=== PATIENT | female | born 1965 | race Caucasian/White ===

== ENCOUNTER 2020-01-22 14:59 | Emergency (ER) | payer OTHER, SELFPAY ==
[2020-01-22 15:04] VITALS: BP 144/91; PULSE 85; RESP 18; TEMP 36.4; O2SAT 100
[2020-01-22 15:08] VITALS: BP 144/81; PULSE 81; RESP 15; TEMP 36.4; O2SAT 100
--- NOTE | 2020-01-22 15:34 | ED.GENADULT ---
HPI - General Adult General Chief complaint: Unspecified Stated complaint: right breast pain Time Seen by Provider: 01/22/20 15:01 Source: patient Mode of arrival: ambulatory Limitations: no limitations History of Present Illness HPI narrative: Patient presents with chief complaint of discomfort to lower right breast that is exacerbated with movement and breathing. 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 Patient states she has order for mammogram by her primary care Dr. Loya but she has not obtained it. Patient denies a history of breast cancer. Patient denies any erythema, palpable mass or nipple drainage. Patient reports having COPD, hypercholesterolemia. Patient smokes cigarettes and marijuana. Related Data Home Medications Medication Instructions Recorded Confirmed albuterol sulfate 90 mcg/actuation 1 puff INHALATION Q4H PRN 12/23/19 aerosol inhaler cholecalciferol (vitamin D3) 1,250 50,000 unit PO WEEKLY 12/23/19 mcg (50,000 unit) capsule simvastatin 20 mg tablet 20 mg PO DAILY 12/23/19 tramadol 50 mg tablet 50 mg PO Q6H PRN 12/23/19 Allergies Allergy/AdvReac Type Severity Reaction Status Date / Time No Known Allergies Allergy Unverified 04/11/19 18:46 Review of Systems Review of Systems: Narrative: CONSTITUTIONAL: Denies fever, chills, or sweats. EYES: Denies visual changes, redness, or discharge. ENT: Denies rhinorrhea, congestion, sore throat, or otalgia. CARDIOVASCULAR: Denies chest pain, palpitations, or edema. RESPIRATORY: Denies cough or dyspnea. GASTROINTESTINAL: Denies abdominal pain, nausea, vomiting, or diarrhea. GENITOURINARY: Denies dysuria or hematuria. SKIN: Denies rash or itching. MUSCULOSKELETAL: Reports right chest wall pain denies back pain, joint pain NEUROLOGIC: Denies headache, numbness, dizziness, or weakness. PSYCHIATRIC: Denies anxiety or depression. [facility] Past Medical History Medical History (Updated 01/22/20 @ 15:43 by Joseluis Albert PA-C) Anxiety Hypercholesterolemia Vitamin D deficiency Surgical History Surgical History (Updated 12/23/19 @ 11:01 by Esperanza Hancock) H/O: hysterectomy Family History Family History (Updated 12/23/19 @ 11:00 by Esperanza Hancock) Father Lung cancer Social History Social History (Updated 12/23/19 @ 11:01 by Esperanza Hancock) Smoking status: Current every day smoker Second hand tobacco smoke exposure: Yes Alcohol intake: never Gender identity (if verbalized by the patient): Female Exam Narrative: Exam Narrative: GENERAL: Well-appearing, well-nourished, and in no acute distress. HEAD: Normocephalic, atraumatic. EYES: PERRLA and EOMI. ENT: Nares clear, no rhinorrhea or epistaxis. Mucous membranes moist. Oropharynx without tonsillar hypertrophy exudate or other lesions. Bilateral TMs pearly corado nonbulging NECK: Supple. No adenopathy or masses. No carotid bruits or JVD CHEST: Clear to auscultation. No respiratory distress. No wheezes rales or rhonchi. No palpable chest wall/breast mass. It is tender to palpation and with range of motion of right arm. There is no discharge from the nipple. There is no erythema ecchymosis or dimpling of the skin above. HEART: Regular rate and rhythm. No murmur heard. Normal peripheral pulses. EXTREMITIES: Normal range of motion. No edema. SKIN: Warm, dry, no rash. NEURO: No focal deficits. Alert and oriented x3. PSYCH: Normal mood and affect. Course Vital Signs Vital signs: Vital Signs Temperature 97.5 F L 01/22/20 15:04 Pulse Rate 85 01/22/20 15:04 Respiratory Rate 18 01/22/20 15:04 Blood Pressure 144/91 H 01/22/20 15:04 Pulse Oximetry 100 01/22/20 15:04 Temperature 97.6 F 01/22/20 15:08 Pulse Rate 81 01/22/20 15:08 Respiratory Rate 15 01/22/20 15:08 Blood Pressure 144/81 H 01/22/20 15:08 Pulse Oximetry 100 01/22/20 15:08 Medical Decision Yvette
[2020-01-22] MEDS: KETOROLAC 30 MG/ML VIAL (*BKC) IM (16:05)
== END 2020-01-22 16:20 | disposition home or self-care (01) ==
PROVIDERS: Emergency Provider Family Medicine; PCP Emergency Medicine
DX: R07.89 Other chest pain (principal); E78.00 Pure hypercholesterolemia, unspecified; E55.9 Vitamin D deficiency, unspecified; J44.9 Chronic obstructive pulmonary disease, unspecified; F17.210 Nicotine dependence, cigarettes, uncomplicated
CPT/HCPCS: 96372; 99283; J1885

== ENCOUNTER → 2020-01-29 12:07 | Outpatient (CLI) | payer OTHER, SELFPAY ==
--- NOTE | ~2020-01-29 | XR_ITS ---
EXAMINATION: XR_[id number]_CR EXAM DATE: 01/29/2020 12:43 INDICATION: No known recent injury provided at this time. Pain behind right breast for 2 weeks. TECHNIQUE: Frontal projection of the upper right ribs, frontal projection of the lower right ribs, ob lique projection of the right ribs, frontal chest x-ray(s) for interpretation. Correlation is made to chest x-ray 01/29/2020. FINDINGS: There is right ninth rib fracture laterally which appears to be healed, an old finding. The re are no acute fractures identified. There are no osteoblastic or osteolytic lesions identified. The re is mild right shoulder acromioclavicular joint primary osteoarthritis. There is no soft tissue abn ormality seen. There are cholecystectomy clips. No confluent consolidation, pneumothorax or pleural e ffusion suspected. IMPRESSION: No acute right rib fractures identified. Reviewed, dictated and finalized at location A. 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
--- NOTE | ~2020-01-29 | XR_ITS ---
EXAMINATION: XR chest 2V 01/29/2020 12:43 INDICATION: Chest pain. History of rib fracture. PROCEDURE: 2 view chest COMPARISON: No prior studies for comparison. FINDINGS: The lungs are clear. The cardiomediastinal silhouette is within normal limits. There are no pleural effusions. There is no pneumothorax suspected. IMPRESSION: 1: NO ACUTE CARDIOPULMONARY DISEASE. Reviewed, dictated and finalized at location B. C SUPERVISOR
== END ==
PROVIDERS: PCP Emergency Medicine; Visit Provider Emergency Medicine
DX: N64.4 Mastodynia (principal)
CPT/HCPCS: 71046; 71101

== ENCOUNTER → 2020-06-14 13:44 | Outpatient (CLI) | payer OTHER, SELFPAY ==
--- NOTE | ~2020-06-14 | XR_ITS ---
XR elbow RT min 3V DATE: 06/14/2020 14:40 INDICATION: Right elbow pain TECHNIQUE: 4 views COMPARISON: None FINDINGS: No fracture or dislocation or joint effusion. No periosteal reaction or bone destruction. IMPRESSION: No significant abnormality Reviewed, dictated and finalized at location B. IMPRESSION: No significant abnormality
--- NOTE | ~2020-06-14 | XR_ITS ---
XR hand RT min 3V DATE: 06/14/2020 14:41 INDICATION: Right hand pain TECHNIQUE: 3 views COMPARISON: None FINDINGS: No fracture or dislocation, periosteal reaction or bone destruction. There are mild osteoar thritic changes of the first carpometacarpal, first and second metacarpophalangeal and some of the in terphalangeal joints. No fracture, dislocation, periosteal reaction or bone destruction or erosive change or chondrocalcino sis. IMPRESSION: Mild osteoarthritis Reviewed, dictated and finalized at location B. IMPRESSION: Mild osteoarthritis
--- NOTE | ~2020-06-14 | XR_ITS ---
XR hip LT min 2V DATE: 06/14/2020 14:39 INDICATION: Left hip pain TECHNIQUE: AP, lateral, crosstable lateral views of left hip COMPARISON: None FINDINGS: No fracture or dislocation, avascular necrosis or bone destruction. The left hip joint spac e is narrowed medially with mild spurring.. IMPRESSION: Mild left hip osteoarthritis Reviewed, dictated and finalized at location B.
--- NOTE | ~2020-06-14 | XR_ITS ---
XR hip RT min 2V DATE: 06/14/2020 14:40 INDICATION: Right hip pain TECHNIQUE: AP, lateral, crosstable lateral views of right hip COMPARISON: None FINDINGS: There is medial right hip joint space narrowing and mild spurring consistent with osteoarth ritis. No fracture, dislocation, avascular necrosis or bone destruction. IMPRESSION: Mild right hip osteoarthritis Reviewed, dictated and finalized at location B.
--- NOTE | ~2020-06-14 | XR_ITS ---
XR hand LT min 3V DATE: 06/14/2020 14:40 INDICATION: Left hand pain TECHNIQUE: 3 views COMPARISON: None FINDINGS: There is mild osteoarthritic change at the first carpometacarpal joint. No fracture, dislocation, periosteal reaction or bone destruction is detected. No erosive change or c hondrocalcinosis. IMPRESSION: Mild osteoarthritis Reviewed, dictated and finalized at location B. IMPRESSION: Mild osteoarthritis
--- NOTE | ~2020-06-14 | XR_ITS ---
XR forearm RT 2V DATE: 06/14/2020 14:41 INDICATION: Right forearm pain TECHNIQUE: AP and lateral views COMPARISON: None FINDINGS: No fracture or dislocation, periosteal reaction or bone destruction. Normal alignment at th e elbow and wrist joints. IMPRESSION: No significant abnormality Reviewed, dictated and finalized at location B. IMPRESSION: No significant abnormality
== END ==
PROVIDERS: PCP Emergency Medicine; Visit Provider Emergency Medicine
DX: M25.521 Pain in right elbow (principal); M25.542 Pain in joints of left hand; M25.541 Pain in joints of right hand; M19.042 Primary osteoarthritis, left hand; M19.041 Primary osteoarthritis, right hand; M16.0 Bilateral primary osteoarthritis of hip
CPT/HCPCS: 73080; 73090; 73130; 73502

== ENCOUNTER 2020-10-12 10:34 | Outpatient (CLI) | payer OTHER, SELFPAY ==
[2020-10-12 12:26] LABS: Folic Acid 16.5 ng/mL (2.76->20)
== END 2020-10-12 10:35 | disposition home or self-care (01) ==
PROVIDERS: PCP Emergency Medicine; Visit Provider Emergency Medicine
DX: R71.8 Other abnormality of red blood cells (principal)
CPT/HCPCS: 36415; 82607; 82746

== ENCOUNTER 2021-01-24 11:56 | Outpatient (CLI) | payer OTHER, SELFPAY ==
--- NOTE | ~2021-01-24 | XR_ITS ---
EXAMINATION: XR forearm RT 2V EXAM DATE: 01/24/2021 12:30 INDICATION: Right wrist, elbow pain, no known recent injury. TECHNIQUE: Right forearm frontal and lateral projections obtained and reviewed. Correlation is made t o right elbow examination 3 06/14/2020. FINDINGS: There are no acute right forearm fractures or dislocations identified. There is no subcuta neous gas. The soft tissue is unremarkable. There are no radiopaque foreign bodies. IMPRESSION: 1. Unremarkable XR forearm RT 2V exam. Reviewed, dictated and finalized at location A. 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
--- NOTE | ~2021-01-24 | XR_ITS ---
EXAMINATION: XR hip BI wo pelvis EXAM DATE: 01/24/2021 12:29 INDICATION: Bilateral hip pain, no known recent injury. TECHNIQUE: Each hip imaged independently (separate right and also left hip) 'frog leg' and frontal p rojections for interpretation. Comparison is made to prior examination from 06/14/2020. FINDINGS: No radiographic evidence of hip avascular necrosis. There is mild symmetric bilateral hip primary osteoarthritis. There are no acute fractures or dislocations identified. There is no subcuta neous gas. The soft tissue is unremarkable. There are no radiopaque foreign bodies. There is no s ignificant interval change. IMPRESSION: Mild symmetric bilateral hip osteoarthritis. Reviewed, dictated and finalized at location A. OL TANKER DRIVER
--- NOTE | ~2021-01-24 | XR_ITS ---
EXAMINATION: XR hand RT min 3V EXAM DATE: 01/24/2021 12:29 INDICATION: No known recent injury provided at this time. Pain of the thumbs bilaterally. TECHNIQUE: Right hand frontal, lateral and oblique projections obtained and reviewed. Comparison is m gordon to prior examination from 06/14/2020. FINDINGS: Right metacarpal bones are unremarkable. There is mild 1st carpometacarpal, metacarpophala ngeal, polyarticular interphalangeal primary osteoarthritis. There are no bony erosions identified. There are no acute fractures or dislocations identified. There is no subcutaneous gas. The soft tis kike is unremarkable. There are no radiopaque foreign bodies. IMPRESSION: Mild polyarticular right hand osteoarthritis. Reviewed, dictated and finalized at location A. 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
--- NOTE | ~2021-01-24 | XR_ITS ---
EXAMINATION: XR hand LT min 3V EXAM DATE: 01/24/2021 12:29 INDICATION: No known recent injury provided at this time. Pain of the thumbs bilaterally. TECHNIQUE: Left hand frontal, lateral and oblique projections obtained and reviewed. Comparison is ma de to prior examination from 06/14/2020. FINDINGS: Left metacarpal bones are unremarkable. There is mild primary osteoarthritis at the 1st car pometacarpal, metacarpophalangeal and interphalangeal joints, as well as multiple interphalangeal eliu nts. There are no bony erosions identified. There are no acute fractures or dislocations identified. There is no subcutaneous gas. The soft tissue is unremarkable. There are no radiopaque foreign alicia dies. IMPRESSION: Mild polyarticular left hand osteoarthritis, 1st CMC joint most affected. Reviewed, dictated and finalized at location A. BATTALION CHIEF IMPRESSION: Mild polyarticular left hand osteoarthritis, 1st CMC joint most aff ected.
--- NOTE | ~2021-01-24 | XR_ITS ---
EXAMINATION: XR elbow RT min 3V DATE: 01/24/2021 12:29 INDICATION: Right elbow pain. TECHNIQUE: 4 views of right elbow were obtained. COMPARISON: None. FINDINGS: Bone alignment is normal. No fracture. Joint spaces are well maintained. There is an enthes ophyte at medial humeral epicondyle. There is no elbow joint effusion. IMPRESSION: 1. No specific etiology for the patient's symptoms. Reviewed, dictated and finalized at location A. CH SPECIALIST
== END 2021-01-24 11:57 | disposition home or self-care (01) ==
LOC: ANHIMG 12:03
PROVIDERS: PCP Emergency Medicine; Visit Provider Emergency Medicine
DX: M79.631 Pain in right forearm (principal); M16.0 Bilateral primary osteoarthritis of hip; M18.11 Unilateral primary osteoarthritis of first carpometacarpal joint, right hand; M19.042 Primary osteoarthritis, left hand; M19.041 Primary osteoarthritis, right hand; M25.521 Pain in right elbow
CPT/HCPCS: 73080; 73090; 73130; 73521

== ENCOUNTER 2021-02-11 08:43 | Outpatient (CLI) | payer OTHER, SELFPAY ==
--- NOTE | ~2021-02-11 | MM_ITS ---
EXAMINATION: MM screening [facility] BI w cynthia HISTORY: Screening mammogram TECHNIQUE: Craniocaudal and mediolateral oblique 3-D tomosynthesis images were obtained and synthetic 2-D images were generated. CAD analysis was submitted and interpreted. COMPARISON: 08/02/2016, 06/26/2016 BREAST PARENCHYMAL COMPOSITION: There are scattered areas of fibroglandular density. FINDINGS: There is no evidence of suspicious mass, calcification, or architectural distortion to sugg est malignancy in either breast. There has been no suspicious interval change. IMPRESSION: 1. No mammographic evidence of malignancy. 2. Recommend routine screening mammography in one year. BI-RADS Category 1: Negative Reviewed, dictated and finalized at location A.
== END 2021-02-11 08:44 | disposition home or self-care (01) ==
LOC: ANHIMG 08:45
PROVIDERS: PCP Emergency Medicine; Visit Provider Emergency Medicine
DX: Z12.31 Encounter for screening mammogram for malignant neoplasm of breast (principal)
CPT/HCPCS: 77063; 77067

== ENCOUNTER 2021-02-18 09:40 | Outpatient (CLI) | payer OTHER, SELFPAY ==
--- NOTE | ~2021-02-18 | US_ITS ---
EXAMINATION: US abdomen complete EXAM DATE: 02/18/2021 10:04 INDICATION: Elevated alkaline phosphatase. TECHNIQUE: Multiple grayscale and Doppler images of the complete abdomen were obtained (by a technolo gist who performed the scan) and subsequently reviewed. There is no prior study for comparison. FINDINGS: The abdominal aorta is normal in caliber. Visualized portion IVC is patent. The pancreatic head a nd body are normal in appearance. The pancreatic tail is not visualized. The liver has normal echogenicity and contour. There are no focal liver lesions identified. There is no evidence of intrahepatic biliary duct dilation. Portal venous flow was seen in the hepatopedal , normal direction and has normal Doppler waveform. Common bile duct measures 3 mm, which is normal. The gallbladder fossa is unremarkable. Right kidney: There is normal contour and echogenicity. It measures 11.1 x 3.9 x 4.5 centimeters. There are no focal renal lesions identified. There is no hydronephrosis. Left kidney: There is normal contour and echogenicity. It measures 11.5 x 4.9 x 4.5 centimeters. T here are no focal renal lesions identified. There is no hydronephrosis. The spleen measures 10.2 centimeters and is morphologically normal. IMPRESSION: 1. Unremarkable complete abdominal ultrasound exam. Reviewed, dictated and finalized at location A.
== END 2021-02-18 09:41 | disposition home or self-care (01) ==
LOC: ANHIMG 09:41
PROVIDERS: PCP Emergency Medicine; Visit Provider Emergency Medicine
DX: M25.551 Pain in right hip (principal); M25.552 Pain in left hip; R79.89 Other specified abnormal findings of blood chemistry
CPT/HCPCS: 76700

== ENCOUNTER 2021-08-08 09:59 | Emergency (ER) | payer OTHER, SELFPAY ==
--- NOTE | ~2021-08-08 | XR_ITS ---
EXAMINATION:XR_[id number]_CR DATE: 08/08/2021 10:48 INDICATION: Neck pain TECHNIQUE: AP, lateral, lateral swimmers and odontoid views of the cervical spine are provided. COMPARISON: None FINDINGS: Alignment is normal. The odontoid is intact. No fracture is identified. The vertebral heigh ts are maintained. There is mild loss of intervertebral disc space height at C4-5. There is severe fa cet osteoarthritis at C2-3 and C3-4. Prevertebral soft tissues are normal. IMPRESSION: 1. Mild cervical spondylosis without acute findings. Reviewed, dictated and finalized at location A.
--- NOTE | ~2021-08-08 | CT_ITS ---
EXAMINATION: CT brain wo con DATE: 08/08/2021 10:41 INDICATION: Trauma with posterior head injury and vomiting TECHNIQUE: Computed tomography (CT) of the head was performed without intravenous contrast. Sagittal and coronal reconstructions were performed. The mA was adjusted according to patient size. Iterative reconstruction technique was employed. The dose-length product was 605.33 mGy-cm. COMPARISON: head CT dated 09/13/2014 FINDINGS: No calvarial fracture. No acute intracranial hemorrhage, acute infarction or abnormal extra axial flu id collection. Ventricles are normal and symmetric. No mass/mass effect. The orbits, paranasal sinuse s and mastoid air cells are normal. IMPRESSION: 1. Normal head CT. No fracture or acute intracranial process. Reviewed, dictated and finalized at location A.
[2021-08-08 10:03] VITALS: BP 127/88; PULSE 72; RESP 16; TEMP 36.9; O2SAT 97
[2021-08-08] MEDS: KETOROLAC (*BKC) 60 MG/2 ML VIAL IM (10:31)
--- NOTE | 2021-08-08 11:09 | ED.FALL ---
HPI - Fall General Chief Complaint: Fall Stated Complaint: Fall Head Injury Time Seen by Provider: 08/08/21 10:14 History of Present Illness HPI Narrative: Patient is a 56-year-old female who presents ER after falling last night and striking her head. She had her dog leash wrapped around her leg and the dog ran away causing her to spin in a cachil dehe. She fell backwards and struck her head. No loss consciousness but had immediate emesis. She had some mild headaches since then. No changes in vision or hearing. She is not on blood thinner. She does endorse body aches most prominently in her cervical region. No upper or lower extremity numbness or tingling or weakness. Related Data Home Medications Medication Instructions Recorded Confirmed albuterol sulfate 90 mcg/actuation 1 puff INHALATION Q4H PRN 12/23/19 aerosol inhaler cholecalciferol (vitamin D3) 1,250 50,000 unit PO WEEKLY 12/23/19 mcg (50,000 unit) capsule simvastatin 20 mg tablet 20 mg PO DAILY 12/23/19 tramadol 50 mg tablet 50 mg PO Q6H PRN 12/23/19 Allergies Allergy/AdvReac Type Severity Reaction Status Date / Time No Known Allergies Allergy Unverified 04/11/20 12:30 Review of Systems Review of Systems: All systems reviewed & are unremarkable except as noted in HPI and below Constitutional: Constitutional: Denies chills, Denies fever(s) and Denies weakness Eyes: Eyes: Denies change in vision and Denies photophobia ENT: Denies nasal congestion and Denies sore throat Gastrointestinal: Gastrointestinal: Denies nausea and Reports vomiting Neurologic: Denies confusion, Denies dizziness, Denies syncope, Reports headache(s), Denies focal weakness and Denies numbness [facility] Past Medical History Medical History (Updated 08/08/21 @ 11:13 by Bernardo Rendon MD) Anxiety Hypercholesterolemia Vitamin D deficiency Surgical History Surgical History (System 04/11/20 @ 12:30 by Bernie Lizama) H/O: hysterectomy Family History Family History (System 04/11/20 @ 12:30 by Bernie Lizama) Father Lung cancer Social History Social History (System 04/11/20 @ 12:30 by Bernie Lizama) Smoking status: Current every day smoker Second hand tobacco smoke exposure: Yes Alcohol intake: never Gender identity (if verbalized by the patient): Female Exam Narrative: GENERAL: Well-appearing, well-nourished, and in no acute distress. HEAD: Normocephalic, atraumatic. EYES: PERRL and EOMI. right and left gaze nystagmus. ENT: Mucous membranes moist. CHEST: Clear to auscultation. No respiratory distress. HEART: Regular rate and rhythm. Normal peripheral pulses. ABDOMEN: Soft, nontender, nondistended. Back: Paraspinal muscular tenderness of the cervical and thoracic spine. Mild midline tenderness of the cervical spine. No step-offs. EXTREMITIES: Normal range of motion. No edema. NEURO: Alert and oriented x3. Course Course Emergency Course: Toradol given for pain. Patient informed of results. Discharge home. Vital Signs Vital signs: Vital Signs Temperature 98.4 F 08/08/21 10:03 Pulse Rate 72 08/08/21 10:03 Respiratory Rate 16 08/08/21 10:03 Blood Pressure 127/88 08/08/21 10:03 Pulse Oximetry 97 08/08/21 10:03 Temperature 98.4 F 08/08/21 10:03 Pulse Rate 72 08/08/21 10:03 Respiratory Rate 16 08/08/21 10:03 Blood Pressure 127/88 08/08/21 10:03 Pulse Oximetry 97 08/08/21 10:03 MDM - Fall Imaging Data Radiologist's impression: ITS Impressions Head CT 08/08/21 10:42 IMPRESSION: 1. Normal head CT. No fracture or acute intracranial process. Cervical Spine X-Ray 08/08/21 10:53 IMPRESSION: 1. Mild cervical spondylosis without acute findings. Discharge Plan Discharge Clinical Impression: Concussion, Cervical strain Patient Disposition: Home, Self-Care Condition: Stable Instructions: Cervical Strain (ED), Concussion (ED) Additional
[2021-08-08 11:25] VITALS: BP 127/84; PULSE 66; RESP 16; O2SAT 100
== END 2021-08-08 11:28 | disposition home or self-care (01) ==
PROVIDERS: Emergency Provider Emergency Medicine; PCP Emergency Medicine
DX: S06.0X0A Concussion without loss of consciousness, initial encounter (principal); S16.1XXA Strain of muscle, fascia and tendon at neck level, initial encounter; F41.9 Anxiety disorder, unspecified; E78.00 Pure hypercholesterolemia, unspecified; F17.210 Nicotine dependence, cigarettes, uncomplicated; W01.10XA Fall on same level from slipping, tripping and stumbling with subsequent striking against unspecified object, initial encounter
CPT/HCPCS: 70450; 72040; 96372; 99284; J1885

== ENCOUNTER 2021-12-25 18:08 | Emergency (ER) | payer OTHER, SELFPAY ==
--- NOTE | 2021-12-25 18:21 | ED.ANIMALBIT ---
HPI - Animal Bite General Chief Complaint: Animal Bite Stated Complaint: Cat bite Time Seen by Provider: 12/25/21 18:21 Mode of arrival: ambulatory Limitations: no limitations History of Present Illness HPI narrative: 56-year-old female presents concern for cat bite to her right hand. She reports today she was bit by her cat. Reports the cat is up-to-date on its rabies vaccination. She reports dorsal hand pain, swelling, scabs. She denies fever, body aches, chills, drainage from the area. complaint: animal bite Related Data Home Medications Medication Instructions Recorded Confirmed albuterol sulfate See Rx Instructions .ROUTE .COMPLEX 12/25/21 12/25/21 simvastatin 20 mg PO DAILY 12/25/21 12/25/21 Allergies Allergy/AdvReac Type Severity Reaction Status Date / Time No Known Allergies Allergy Unverified 12/25/21 18:20 Review of Systems Review of Systems: CONSTITUTIONAL: Denies malaise, chills, sweats, or fever. CARDIOVASCULAR: Denies chest pain, palpitations, or edema. RESPIRATORY: Denies cough or dyspnea. SKIN: Cat bite with pain, swelling, redness to the right hand MUSCULOSKELETAL: Denies myalgia. Reports right hand pain NEUROLOGIC: Denies numbness, weakness All systems reviewed & are unremarkable except as noted in HPI and below PMFSH Past Medical History Medical History (Updated 12/25/21 @ 18:27 by Felisa Crews NP) Anxiety Hypercholesterolemia Vitamin D deficiency Surgical History Surgical History (System 04/11/20 @ 12:30 by Bernie Lizama) H/O: hysterectomy Family History Family History (System 04/11/20 @ 12:30 by Bernie Lizama) Father Lung cancer Social History Social History (System 04/11/20 @ 12:30 by Bernie Lizama) Smoking status: Current every day smoker Second hand tobacco smoke exposure: Yes Alcohol intake: never Gender identity (if verbalized by the patient): Female Comments At time of signature, agree with nursing past medical, surgical, social and family history. There is no relevant family history pertinent to the presenting complaint Exam Narrative: GENERAL: Well-appearing, well-nourished, and in no acute distress. HEAD: Normocephalic EYES: PERRLA, conjunctivae clear NECK: Supple. CHEST: Speaks in full sentences. No respiratory distress. HEART: Regular rate and rhythm. Normal and equal peripheral pulses. EXTREMITIES: Right hand and digits of hand have normal strength and sensation. 5/5 strength with digit flexion, extension. No clubbing, cyanosis, or edema noted. Dorsal tenderness and erythema beneath digits 3 and 4. Normal digital cascade with flexion of fingers, median, ulnar and radial nerve intact. Normal sensation of each side of finger. Can perform 'okay' sign, 'cross over finger test of index and middle fingers. No scissoring. Normal thumb opposition. Good capillary refill and radial pulse. Distal capillary refill less than 3 seconds. Patient is right/left hand dominant SKIN: Warn, dry, intact, pink. Scabbed puncture wounds noted to the dorsal hand many digits 3 and 4 without surrounding induration or warmth NEURO: Alert and oriented x3. PSYCH: Normal mood and affect Course Course Emergency Course: Patient is aware of diagnosis, understands and agrees to treatment plan. Anticipatory guidance given. Patient agrees to follow-up as directed and is aware of reasons to seek care at the emergency department. Portions of this record may have been created with voice recognition software Level of Care: Express Care Visit Vital Signs Vital signs: Reviewed. MDM - Animal Bite MDM Narrative Medical decision making narrative: Exam findings show no acute concerns or changes; patient is non-toxic appearing and is in no distress. Patient is appropriate for outpatient treatment and follow-up. Differential Diagnosis Differential diagnosis: Likely cat bite and other (Cellulitis, abscess, tendon injury) Critical Care Time Critical Care Time Cri
[2021-12-25] MEDS: TETANUS,DIPHTHERIA,AC PERTUSSIS ADULT (0.5 ML) BOOSTRIX IM (18:43)
[2021-12-25 19:11] VITALS: BP 143/80; PULSE 67; RESP 16; TEMP 36.6; O2SAT 99
== END 2021-12-25 19:01 | disposition home or self-care (01) ==
PROVIDERS: Emergency Provider Nurse Practitioner; PCP Emergency Medicine
DX: S61.431A Puncture wound without foreign body of right hand, initial encounter (principal); W55.01XA Bitten by cat, initial encounter; Z23 Encounter for immunization; E78.00 Pure hypercholesterolemia, unspecified; F17.200 Nicotine dependence, unspecified, uncomplicated
CPT/HCPCS: 90471; 90715; 99213; G0463

== ENCOUNTER → 2022-06-22 02:53 | Outpatient (CLI) | payer OTHER, SELFPAY ==
[2022-06-22 12:05] LABS: SARS-CoV-2 RNA PCR Positive
== END ==
PROVIDERS: PCP Emergency Medicine; Visit Provider Emergency Medicine
DX: U07.1 COVID-19 (principal); R50.9 Fever, unspecified
CPT/HCPCS: C9803; U0003; U0005

== ENCOUNTER 2022-08-21 17:01 | Emergency (ER) | payer OTHER, SELFPAY ==
--- NOTE | 2022-08-21 17:03 | ED.EXTPRO ---
HPI - Extremity Problem General Chief complaint: Extremity Problem,Nontraumatic Stated complaint: Right Arm/Hand Pain Time Seen by Provider: 08/21/22 17:03 Source: patient Mode of arrival: ambulatory Limitations: no limitations History of Present Illness HPI Narrative: Ms. Evans is a 57-year-old female patient presenting to the clinic today with complaints of right arm/hand pain x 1 week. She reports she was lifting a couch approximately 1 week ago and has had a history of tennis elbow before and has reaggravated it. She reports pain to the lateral forearm with radiation of pain down to the fingers. Notes that she is also having some numbness in her fingers as well. She denies any head or neck injury recently. She denies any shoulder pain or neck pain Related Data Home Medications Medication Instructions Recorded Confirmed albuterol sulfate 90 mcg/actuation See Rx Instructions .Route .COMPLEX 12/25/21 12/25/21 aerosol inhaler simvastatin 20 mg tablet 20 mg PO DAILY 12/25/21 12/25/21 Allergies Allergy/AdvReac Type Severity Reaction Status Date / Time No Known Allergies Allergy Verified 08/21/22 17:05 Review of Systems Review of Systems: Pertinent positives per HPI. Patient denies any fever, chills, rash, headache, visual changes, dizziness, cough, runny nose, sore throat, shortness of breath, chest pain, palpitations, nausea, vomiting, diarrhea, constipation, abdominal pain, or any urinary issues. [facility] Past Medical History Medical History Anxiety Hypercholesterolemia Vitamin D deficiency Surgical History Surgical History H/O: hysterectomy Family History Family History Father Lung cancer Social History Social History Smoking status: Current every day smoker Second hand tobacco smoke exposure: Yes Alcohol intake: never Gender identity (if verbalized by the patient): Female Comments At the time of my signature, I reviewed and agree with the nursing past medical, surgical, social, and family history. There is no relevant family history pertinent to the patient complaint. Exam Narrative: General: Well-developed, well nourished, in no apparent distress Head: Normocephalic, atraumatic. Cardio: Regular rate and rhythm, s1 and s2 normal, no murmur appreciated. Resp: Clear to auscultation bilaterally, no rhonchi, rales, wheezing or rubs. 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 Level of Care: Express Care Visit Vital Signs Vital signs: Vital signs reviewed MDM - Extremity (Nontraumatic) MDM Narrative Medical decision making narrative: At the time of visit patient is resting comfortably on the exam table. I suspect the patient has left lateral epicondylitis. Supportive measures were discussed with the patient she voiced understanding of discharge instructions. I will give her a prescription for some prednisone and also discussed a tennis elbow band. She voiced understanding of the discharge instructions and agrees to the treatment plan. Differential Diagnosis Differential diagnosis: Likely other (Tennis elbow, golfer's elbow, tendinitis, paresthesia) Discharge Plan Discharge Clinical Impression: Epicondylitis, lateral Patient Disposition: Home, Self-Care Condition: Stable Instructions: Antibiotic Fo
[2022-08-21 17:07] VITALS: BP 141/78; PULSE 71; RESP 16; TEMP 36.2; O2SAT 100
== END 2022-08-21 17:27 | disposition home or self-care (01) ==
PROVIDERS: Emergency Provider Nurse Practitioner Family; PCP Emergency Medicine
DX: M77.11 Lateral epicondylitis, right elbow (principal); F41.9 Anxiety disorder, unspecified; E78.00 Pure hypercholesterolemia, unspecified
CPT/HCPCS: 99213; G0463

== ENCOUNTER 2023-02-02 14:43 | Emergency (ER) | payer OTHER, SELFPAY ==
[2023-02-02] VITALS (21 sets, daily range): BP systolic 130–157; BP diastolic 73–82; PULSE 61–75; RESP 11–29; TEMP 36.6; O2SAT 93–99
--- NOTE | ~2023-02-02 | XR_ITS ---
Clinical Indication: Chest pain PA and lateral views of the chest: Comparison: 01/29/2020 Findings: The lungs are clear, without evidence of focal consolidation or pleural effusion. Cardiome diastinal silhouette is within normal limits. Bones and soft tissues are unremarkable. Impression: Normal chest. Reviewed, dictated and finalized at [facility]. E COACH Impression: Normal chest.
--- NOTE | 2023-02-02 14:48 | ECG_ITS ---
Measurements Intervals [place] Rate: 74 P: 49 MI: 179 QRS: -57 QRSD: 122 T: 55 QT: 423 QTc: 470 Interpretive Statements SINUS RHYTHM POSSIBLE LEFT ATRIAL ENLARGEMENT INCOMPLETE RIGHT BUNDLE BRANCH BLOCK LEFT ANTERIOR FASCICULAR BLOCK BASELINE WANDER- V2-V4 ABNORMAL ECG NO PREVIOUS ECG AVAILABLE FOR COMPARISON Electronically Signed On 02-02-2023 17:12:02 FLAME ANNEALING MACHINE OPERATOR by Bhargav Lynn D.O.
[2023-02-02 15:05] LABS: Basophils Absolute Auto 0.1 K/mm3 (0.0-0.1); Basophils Percent Auto 0.9 % (0.2-1.2); Eosinophils Absolute Auto 0.1 K/mm3 (0-0.3); Eosinophils Percent Auto 2.2 % (0-4.4); Hematocrit 44.1 % (37.0-47.0); Hemoglobin 14.7 g/dL (12.0-15.0); Immature Granulocyte Absolute 0.02 K/mm3 (0.00-0.031); Immature Granulocyte Percent A 0.3 % (0-0.5); Lymphocytes Percent Auto 32.7 % (18.3-44.2); Mean Corpuscular HGB Conc 33.3 g/dl (32-36); Mean Corpuscular Hemoglobin 33.6 pg (26-34); Mean Corpuscular Volume 100.7 fl (80-100); Mean Platelet Volume 10.2 fl (7.4-10.4); Monocytes Absolute Auto 0.3 K/mm3 (0.1-0.6); Monocytes Percent Auto 4.5 % (2.6-8.5); Neutrophils Absolute Auto 3.8 K/mm3 (1.3-6.7); Neutrophils Percent Auto 59.4 % (45.5-73.1); Platelet Count Result 197 k/mm3 (150-375); Red Blood Count 4.38 M/mm3 (4.2-5.4); White Blood Count 6.4 K/mm3 (4.5-10.0)
--- NOTE | 2023-02-02 15:05 | ED.CHESTPAIN ---
HPI - Chest Pain General Chief Complaint: Chest Pain Stated Complaint: Chest Pain Time Seen by Provider: 02/02/23 14:52 Source: RN notes reviewed History of Present Illness HPI narrative: Chest pain began 3 days ago. States she has been having intermittent chest pain across the bilateral anterior chest is described as a pressure in nature. States the episodes last approximately 1 to 2 hours and then resolved states that she was cleaning a house today when the current episode occurred extra mild shortness of breath with the symptoms she denies any fevers or chills abdominal pain nausea or vomiting. She denies any previous cardiac history. Does have a history of high cholesterol as well as tobacco use states that she does have some radiation of the pain into her right arm Related Data Home Medications Medication Instructions Recorded Confirmed albuterol sulfate 90 mcg/actuation See Rx Instructions .Route .COMPLEX 12/25/21 08/21/22 aerosol inhaler simvastatin 20 mg tablet 20 mg PO DAILY 12/25/21 08/21/22 Allergies Allergy/AdvReac Type Severity Reaction Status Date / Time No Known Allergies Allergy Verified 02/02/23 14:53 Review of Systems Review of Systems: Gen.: Denies fevers or chills ENT: Denies congestion Respiratory: Reports shortness of breath CV: Reports chest GI: Denies abdominal pain nausea, emesis or diarrhea Musculoskeletal: Denies back pain or muscle pain Neuro: Denies numbness, tingling, weakness or focal weakness Skin: Denies rash Except as documented, all other systems reviewed and negative [facility] Past Medical History Medical History Anxiety Hypercholesterolemia Vitamin D deficiency Surgical History Surgical History H/O: hysterectomy Family History Family History Father Lung cancer Social History Social History Smoking status: Current every day smoker Second hand tobacco smoke exposure: Yes Alcohol intake: never Gender identity (if verbalized by the patient): Female Exam Narrative: APPEARANCE: No acute distress, nontoxic, resting in bed EYES: EOMI HEENT: Normocephalic, atraumatic, OMM RESPIRATORY: No respiratory distress Clear to auscultation bilaterally with no rhonchi wheezing or rales. CARDIOVASCULAR: Regular rate and rhythm without murmurs rubs or gallops. ABDOMINAL: Soft, nontender, nondistended, no rebound or guarding MUSCULOSKELETAl: Moves all extremities. No clubbing, cyanosis or edema. NEURO: Awake and alert. Following commands, speech normal, no focal deficits SKIN:: Warm, dry. No rashes lesions or abrasions PSYCHIATRIC: Normal affect/mood, Course Course Emergency Course: Called and discussed with Dr. Soria presentation and work-up for cardiology agrees with consult Called and discussed with SIMI Heredia for Dr. Arauz for hospitalist service. Agrees with admission Discussed with patient need for admission discussed concern of chest pain and need for further evaluation. At this time patient states she cannot stay because she has 2 [place] garcia's at home and she must return home. States she will leave AGAINST MEDICAL ADVICE. Risks of an incomplete evaluation and treatment were discussed with the patient including potential for , heart attack or permanent disability were discussed with the patient seems to understand these risks but still desires to refuse further care. Patient recommended to follow up with cardiology in the next possible interval, specifically they?re told they can return to the ED at any time to resume care. Discharge instructions were given AMA paperwork was filled out Vital Signs Vital signs: Vital Signs Pulse Rate 74 02/02/23 14:48 Respiratory Rate 18 02/02/23 14:48 Blood Pressure 140/78 0
[2023-02-02 15:15] LABS: Alanine Aminotransferase 20 U/L (6-35); Albumin Level 4.5 g/dL (3.5-5.1); Alkaline Phosphatase 130 U/L (38-126); Anion Gap 5 mmol/L (8-16); Aspartate Amino Transferase 28 U/L (14-36); Bilirubin,Total 0.6 mg/dL (0.2-1.3); Blood Urea Nitrogen 14 mg/dL (7-17); Calcium 8.7 mg/dL (8.4-10.2); Carbon Dioxide 28 mmol/L (22-30); Chloride 105 mmol/L (98-107); Estimated CRCL calculation 62 ml/min; Estimated Glomerular Filt Rate > 60; Glucose 113 mg/dL (65-110); Lipase 291 U/L (23-300); Potassium 3.3 mmol/L (3.4-5.0); Sodium 138 mmol/L (137-145)
[2023-02-02 15:19] LABS: INR 1.2; Partial Thromboplastin Time 26.2 SECONDS (22.3-36.8); Prothrombin Time 15.1 Seconds (11.1-14.7)
[2023-02-02 15:25] LABS: D Dimer 0.42 ug/mL (<0.48)
[2023-02-02 15:27] LABS: Troponin I < 0.012 ng/mL (0.000-0.034)
[2023-02-02] MEDS: KETOROLAC 30 MG/ML VIAL (*BKC) IV PUSH (15:37)
[2023-02-02] MEDS: POTASSIUM CHLORIDE 20 MEQ TABLET PO (17:06)
[2023-02-02] MEDS: ASPIRIN 81 MG CHEWABLE TABLET 324 MG PO (17:06)
--- NOTE | 2023-02-02 17:17 | PC.NURSE ---
PT wanting to leave AMA. ERP aware. ERP spoke to pt and agrees to stay for a 2 hour troponin but will not stay for admission.
[2023-02-02 18:37] LABS: Troponin I < 0.012 ng/mL (0.000-0.034)
== END 2023-02-02 19:00 | disposition left against medical advice (07) ==
LOC: ANHED 15:25 → ANHIMU 18:51 → ANHED 18:55
PROVIDERS: Emergency Medicine; Emergency Provider Emergency Medicine; PCP Emergency Medicine
DX: R07.9 Chest pain, unspecified (principal); R94.31 Abnormal electrocardiogram [ECG] [EKG]; F41.9 Anxiety disorder, unspecified; E78.5 Hyperlipidemia, unspecified
CPT/HCPCS: 36415; 71046; 80053; 83690; 84484; 85025; 85380; 85610; 85730; 93005; 96374; 99284; A9270; J1885

== ENCOUNTER 2023-08-16 09:06 | Emergency (ER) | payer OTHER, SELFPAY ==
--- NOTE | ~2023-08-16 | CT_ITS ---
EXAMINATION: CT abdomen pelvis w con DATE: 08/16/2023 10:05 INDICATION: Left upper quadrant abdominal pain TECHNIQUE: Computed tomography (CT) of the abdomen and pelvis was performed with 100 mL Omnipaque-350 intravenous contrast. Automated exposure control and iterative reconstruction technique were employe d. The dose-length product was 410.97 mGy-cm. COMPARISON: None FINDINGS: Mild emphysema at the lung bases. Calcified left lower lobe nodule and a few small splenic calcificat ions consistent with old granulomatous disease. Heart size is normal. No pericardial or pleural effus ion. Cholecystectomy clips the gallbladder fossa. Liver, pancreas, bilateral adrenal glands and kidne ys are normal. There are few sigmoid diverticula without adjacent inflammatory changes to suggest div erticulitis. Small bowel and appendix are normal. The uterus is not identified and has likely been rankin rgically resected. Bladder is normal. Bilateral adnexa are unremarkable. No free intraperitoneal gas or fluid. No pathologically enlarged abdominal or pelvic lymphadenopathy. Moderate lower thoracic and mild lumbar spondylosis. IMPRESSION: 1. No acute intra-abdominal/pelvic process. Reviewed, dictated and finalized at location A.
[2023-08-16 09:07] VITALS: BP 160/78; PULSE 70; RESP 14; TEMP 36.4; O2SAT 100
[2023-08-16 09:29] LABS: Basophils Percent Auto 0.6 % (0.2-1.2); Eosinophils Absolute Auto 0.1 K/mm3 (0-0.3); Eosinophils Percent Auto 2.3 % (0-4.4); Hematocrit 43.8 % (37.0-47.0); Hemoglobin 14.3 g/dL (12.0-15.0); Immature Granulocyte Absolute 0.02 K/mm3 (0.00-0.031); Immature Granulocyte Percent A 0.4 % (0-0.5); Lymphocytes Absolute Auto 1.51 K/mm3 (0.9-3.2); Lymphocytes Percent Auto 29.4 % (18.3-44.2); Mean Corpuscular HGB Conc 32.6 g/dl (32-36); Mean Corpuscular Hemoglobin 33.6 pg (26-34); Mean Corpuscular Volume 102.8 fl (80-100); Mean Platelet Volume 10.1 fl (7.4-10.4); Monocytes Absolute Auto 0.3 K/mm3 (0.1-0.6); Monocytes Percent Auto 5.8 % (2.6-8.5); Neutrophils Absolute Auto 3.2 K/mm3 (1.3-6.7); Neutrophils Percent Auto 61.5 % (45.5-73.1); Platelet Count Result 219 k/mm3 (150-375); Red Blood Count 4.26 M/mm3 (4.2-5.4); Red Cell Distribution Width 12.1 % (11.5-14.5); White Blood Count 5.1 K/mm3 (4.5-10.0)
--- NOTE | 2023-08-16 09:30 | ED.GENADULT ---
HPI - General Adult General Chief complaint: Abdominal Pain Stated complaint: LUQ abdominal pain x 2 days - denies injury Time Seen by Provider: 08/16/23 09:20 History of Present Illness HPI narrative: Betzy Evans is a 58 y/o female who presents with reports of constant left abdominal pain that started yesterday. She states she woke up with the pain yesterday and it stayed all day, she said she drank water to see if that would help but the pain persisted. When she woke up today she states the pain was still there so she came in. Denies nausea/vomiting. Denies fever/chills. Denies changes with urination, last normal BM was today. Hx of cholecystectomy, hysterectomy, c -sections X2. Denies any known truama/ injury. Related Data Home Medications Medication Instructions Recorded Confirmed albuterol sulfate 90 mcg/actuation See Rx Instructions .Route .COMPLEX 12/25/21 08/21/22 aerosol inhaler simvastatin 20 mg tablet 20 mg PO DAILY 12/25/21 08/21/22 Allergies Allergy/AdvReac Type Severity Reaction Status Date / Time No Known Allergies Allergy Verified 08/16/23 09:06 Review of Systems Review of Systems: CONSTITUTIONAL: Denies fever, chills, or sweats. EYES: Denies visual changes, redness, or discharge. ENT: Denies rhinorrhea, congestion, sore throat, or otalgia. CARDIOVASCULAR: Denies chest pain, palpitations, or edema. RESPIRATORY: Denies cough or dyspnea. GASTROINTESTINAL:Reports of left sided abdominal pain for 2 days that is constant, denies nausea, vomiting, or diarrhea. GENITOURINARY: Denies dysuria or hematuria. SKIN: Denies rash or itching. MUSCULOSKELETAL: Denies back pain, joint pain, or myalgia. NEUROLOGIC: Denies headache, numbness, dizziness, or weakness. PSYCHIATRIC: Denies anxiety or depression. [facility] Past Medical History Medical History Anxiety Hypercholesterolemia Vitamin D deficiency Surgical History Surgical History H/O: hysterectomy Family History Family History Father Lung cancer Social History Social History Smoking status: Current every day smoker Second hand tobacco smoke exposure: Yes Alcohol intake: never Gender identity (if verbalized by the patient): Female Exam Narrative: GENERAL: Well-appearing, well-nourished, and in no acute distress. HEAD: Normocephalic, atraumatic. EYES: PERRLA and EOMI. ENT: Nares clear, no rhinorrhea or epistaxis. Mucous membranes moist. Oropharynx without tonsillar hypertrophy exudate or other lesions. NECK: Supple. No adenopathy or masses. No carotid bruits or JVD CHEST: Clear to auscultation. No respiratory distress. No wheezes rales or rhonchi HEART: Regular rate and rhythm. No murmur heard. Normal peripheral pulses. ABDOMEN: Soft, nondistended, normal active bowel sounds. pain with palpation to the left upper left mid/ lateral aspect No CVA tenderness noted. EXTREMITIES: Normal range of motion. No edema. SKIN: Warm, dry, no rash. NEURO: No focal deficits. Alert and oriented x3. PSYCH: Normal mood and affect. Course Vital Signs Vital signs: Vital Signs Temperature 36.4 C L 08/16/23 09:07 Pulse Rate 70 08/16/23 09:07 Respiratory Rate 14 08/16/23 09:07 Blood Pressure 160/78 H 08/16/23 09:07 Pulse Oximetry 100 08/16/23 09:07 Oxygen Delivery Room Air 08/16/23 09:07 Temperature 36.4 C L 08/16/23 09:07 Pulse Rate 61 08/16/23 10:25 Respiratory Rate 23 H 08/16/23 10:25 Blood Pressure 150/83 H 08/16/23 10:25 Pulse Oximetry 100 08/16/23 10:25 Oxygen Delivery Room Air 08/16/23 09:07 Medical Decision Making [facility] Narrative Medical decision making narrative: Patient complains of this constant left sided abdominal pain for two days Denies nausea/vomiting/ diarrhea pain is w
[2023-08-16 09:39] LABS: Alanine Aminotransferase 16 U/L (6-35); Albumin Level 4.2 g/dL (3.5-5.1); Alkaline Phosphatase 107 U/L (38-126); Anion Gap 5 mmol/L (8-16); Aspartate Amino Transferase 29 U/L (14-36); Bilirubin,Total 0.7 mg/dL (0.2-1.3); Blood Urea Nitrogen 9 mg/dL (7-17); Calcium 8.8 mg/dL (8.4-10.2); Carbon Dioxide 29 mmol/L (22-30); Chloride 104 mmol/L (98-107); Estimated CRCL calculation 67 ml/min; Estimated Glomerular Filt Rate > 60; Glucose 94 mg/dL (65-110); Lipase 58 U/L (23-300); Potassium 3.3 mmol/L (3.4-5.0); Sodium 138 mmol/L (137-145)
[2023-08-16] MEDS: FAMOTIDINE 20 MG/2 ML VIAL IV PUSH (09:45)
[2023-08-16] MEDS: SODIUM CHLORIDE 0.9% IV 1,000 ML 999 ML IV CONT (09:45)
[2023-08-16] MEDS: KETOROLAC 30 MG/ML VIAL (*BKC) IV PUSH (09:46)
[2023-08-16 10:25] VITALS: BP 150/83; PULSE 61; RESP 23; O2SAT 100
[2023-08-16 10:35] LABS: Appearance Urine Clear (Clear); Bilirubin Urine Negative (Negative); Blood Urine Negative (Negative); Color Urine Yellow (Yellow); Glucose Urine UA Negative (Negative); Ketones Urine Negative (Negative); Leukocyte Esterase Ur Negative LEU/UL (Negative); Nitrate Urine Negative (Negative); Protein Urine Negative (Negative); Specific Grav Ur 1.017 (1.001-1.035); Urobilinogen Urine 0.2 mg/dL (<2.0); pH Urine 6.5 (5.0-9.0)
[2023-08-16 10:51] LABS: Add Urine Microscopic? NO
[2023-08-16 11:06] VITALS: BP 142/81; PULSE 76; RESP 18; O2SAT 100
[2023-08-16] MEDS: LIDOCAINE 5% PATCH 1 PATCH TRANSDERM (11:06)
== END 2023-08-16 11:06 | disposition home or self-care (01) ==
PROVIDERS: Emergency Medicine; Emergency Provider Nurse Practitioner Family; PCP Emergency Medicine
DX: R10.9 Unspecified abdominal pain (principal); E78.00 Pure hypercholesterolemia, unspecified; E55.9 Vitamin D deficiency, unspecified; F17.200 Nicotine dependence, unspecified, uncomplicated
CPT/HCPCS: 36415; 74177; 80053; 81003; 83690; 85025; 96361; 96374; 96375; 99284; A9270; J1885; J7030; Q9967